=== PATIENT | female | born 1985 | race Hispanic/Latino ===

== ENCOUNTER 2021-11-15 10:07 | Outpatient (CLI) | payer BC ==
[2021-11-15 10:25] VITALS: BMI 34.7
[2021-11-15 10:42] LABS: Hemoglobin 11.6 g/dL (12.0-15.5); Mean Corpuscular HGB CONC 32.9 g/dL (32.0-36.0); Mean Corpuscular Hemoglobin 29.3 pg (27.0-33.0); Mean Corpuscular Volume 89.1 fl (81.6-98.3); Mean Platelet Volume 11.9 fl (7.4-10.4); Platelet Count 241 10x3/uL (150-450); RBC Distribution Width 13.3 % (11.5-14.5); Red Blood Cell (RBC) Count 3.96 10x6/uL (3.90-5.03); White Blood Cell (WBC) Count 6.5 10x3/uL (3.5-10.5)
[2021-11-15 11:25] LABS: Syphilis Antibody Nonreactive (Nonreactive); Syphilis Antibody Index 0.05 S/CO (<1.00 Non-Reactive)
[2021-11-15 11:28] LABS: HBSAg Index 0.16 S/CO (0-0.99); Hep B Surf Ag NonReactive S/CO (NonReactive)
== END 2021-11-15 10:08 | disposition home or self-care (01) ==
LOC: CSHLAB 10:07
PROVIDERS: ATTEND Obstetrics & Gynecology
DX: Z01.812 Encounter for preprocedural laboratory examination (principal); Z20.822 Contact with and (suspected) exposure to COVID-19
CPT/HCPCS: 85027; 86780; 87340; U0003; U0005

== ENCOUNTER 2021-11-18 09:47 | Inpatient (IN) | payer BC ==
[2021-11-18] MEDS ORDERED: Ondansetron PF 4 MG/2 ML Vial ONE (10:27)
[2021-11-18] MEDS ORDERED: ePHEDrine Sulfate 50 MG/10 ML VIAL ONE (10:27)
[2021-11-18] MEDS ORDERED: Oxytocin 10 UNITS/ML VIAL ONE ×2 (10:27→12:47)
[2021-11-18] MEDS ORDERED: Phenylephrine 40 MG/NS 250 ML 250 ML ONE (10:27)
[2021-11-18] MEDS ORDERED: Morphine PF 10 MG/10 ML VIAL ONE (10:27)
[2021-11-18] MEDS ORDERED: PHENYLEPHRINE-NS 100 MCG/ML 10 ML SYRINGE ONE (10:27)
[2021-11-18] MEDS ORDERED: Ketorolac Tromethamine 30 MG/ML VIAL ONE (10:27)
[2021-11-18] MEDS ORDERED: Bicitra 30 ML UDCUP PO PRN (10:53)
[2021-11-18] MEDS ORDERED: Famotidine/PF 20 mg/2ml Vial SLOW IVP PRN (10:53)
[2021-11-18] MEDS ORDERED: Ondansetron PF 4 MG/2 ML Vial IVP PRN ×2 (10:53→11:59)
[2021-11-18] MEDS ORDERED: Lactated Ringer's 1,000 ML IV SCH (10:53)
[2021-11-18] MEDS ORDERED: ceFAZolin 2 GM/Dextrose 50 ML 2 GM in Premix Bag 1 BAG IVPB SCH (10:53)
[2021-11-18] MEDS ORDERED: hydrALAZINE 20 MG/ML VIAL SLOW IVP PRN ×2 (10:53→13:02)
[2021-11-18] MEDS ORDERED: Promethazine HCl 25 MG/ML VIAL IM PRN ×3 (10:53→14:25)
[2021-11-18 10:54] VITALS: BMI 34.0
[2021-11-18] MEDS ORDERED: CEFAZOLIN 2 GM in Sodium Chloride 0.9% 100 ML IVPB SCH (11:15)
[2021-11-18] MEDS ORDERED: Moisturizing Cream (Eucerin) 113 GM JAR TOP PRN (11:59)
[2021-11-18] MEDS ORDERED: Naloxone HCl 0.4 mg/ml Vial IV PRN ×2 (11:59→14:25)
[2021-11-18] MEDS ORDERED: Ondansetron HCl/PF 4 MG/2 ML Vial IVP PRN (11:59)
[2021-11-18] MEDS ORDERED: Fentanyl 100 MCG/2 ML VIAL SLOW IVP PRN (11:59)
[2021-11-18] MEDS ORDERED: Meperidine HCl/PF 25 MG/ML VIAL SLOW IVP PRN (11:59)
[2021-11-18] MEDS ORDERED: Promethazine HCl 25 MG SUPP PR PRN (11:59)
[2021-11-18] MEDS ORDERED: Naloxone HCl 0.4 mg/ml Vial IVP PRN ×2 (11:59)
[2021-11-18] MEDS ORDERED: diphenhydrAMINE 50 MG/ML VIAL IVP PRN ×2 (11:59→14:25)
[2021-11-18] MEDS ORDERED: Communication Order-Pharmacy FS SCH ×2 (12:00→14:30)
[2021-11-18] MEDS ORDERED: diphenhydrAMINE 25 MG CAP PO PRN ×2 (13:02→14:25)
[2021-11-18] MEDS ORDERED: Acetaminophen 325 MG TAB PO PRN (13:02)
[2021-11-18] MEDS ORDERED: Bisacodyl 10 MG SUPP PR PRN (13:02)
[2021-11-18] MEDS ORDERED: Lanolin Ointment 7 GM TUBE TOP PRN (13:02)
[2021-11-18] MEDS ORDERED: Meperidine HCl/PF 25 MG/ML VIAL ONE (14:04)
[2021-11-18] MEDS ORDERED: fentaNYL Citrate/PF 2,000 MCG in Sodium Chloride 0.9% 60 ML IV PRN (14:25)
[2021-11-18] MEDS ORDERED: diphenhydrAMINE 50 MG/ML VIAL IM PRN (14:25)
[2021-11-18] MEDS ORDERED: Zolpidem Tartrate 5 MG TAB PO PRN (14:25)
[2021-11-18] MEDS ORDERED: fentaNYL Citrate/PF 1,000 MCG in Sodium Chloride 0.9% 30 ML IV PRN (14:45)
[2021-11-18] MEDS: FENTANYL IV PRN (15:07)
[2021-11-18] MEDS: SODIUM CHLORIDE 0.9% IV PRN (15:07)
[2021-11-18] MEDS: Ondansetron PF 4 MG/2 ML Vial IVP PRN (17:19)
[2021-11-18] MEDS: Docusate 100 MG CAP PO SCH (20:28)
[2021-11-19] MEDS ORDERED: HYDROcodone/Acetaminophen 5/325 mg Tablet PO PRN ×3 (00:01→09:11)
[2021-11-19] MEDS: SODIUM CHLORIDE 0.9% IV PRN (04:51)
[2021-11-19] MEDS: FENTANYL IV PRN (04:51)
[2021-11-19] MEDS: Simethicone Chewable 80 MG TAB PO PRN ×2 (05:12→19:43)
[2021-11-19] MEDS: Ondansetron PF 4 MG/2 ML Vial IVP PRN (05:12)
[2021-11-19 05:38] LABS: Hemoglobin 10.7 g/dL (12.0-15.5); Mean Corpuscular HGB CONC 33.9 g/dL (32.0-36.0); Mean Corpuscular Hemoglobin 29.4 pg (27.0-33.0); Mean Corpuscular Volume 86.8 fl (81.6-98.3); Mean Platelet Volume 11.6 fl (7.4-10.4); Platelet Count 205 10x3/uL (150-450); RBC Distribution Width 13.2 % (11.5-14.5); Red Blood Cell (RBC) Count 3.64 10x6/uL (3.90-5.03); White Blood Cell (WBC) Count 8.8 10x3/uL (3.5-10.5)
[2021-11-19] MEDS: Famotidine 20 MG TAB PO SCH ×2 (08:45→21:05)
[2021-11-19] MEDS: Prenatal Vitamin 1 TAB PO SCH (08:46)
[2021-11-19] MEDS: Docusate 100 MG CAP PO SCH ×2 (08:46→21:05)
[2021-11-19] MEDS: HYDROcodone/Acetaminophen 5/325 mg Tablet PO PRN ×3 (10:48→19:42)
[2021-11-19] MEDS ORDERED: Boostrix 0.5 ML (Tdap) VIAL IM ONE (13:02)
[2021-11-19] MEDS: HYDROcodone/Acetaminophen 7.5/325 mg Tablet PO PRN (23:58)
[2021-11-20] MEDS: Docusate 100 MG CAP PO SCH ×2 (09:00→21:24)
[2021-11-20] MEDS: Prenatal Vitamin 1 TAB PO SCH (09:00)
[2021-11-20] MEDS: Famotidine 20 MG TAB PO SCH ×2 (09:00→21:24)
[2021-11-20] MEDS: Simethicone Chewable 80 MG TAB PO PRN ×3 (09:00→21:24)
[2021-11-20] MEDS: HYDROcodone/Acetaminophen 7.5/325 mg Tablet PO PRN ×3 (12:09→23:45)
[2021-11-20] MEDS ORDERED: Labetalol HCl 100 MG/20 ML VIAL SLOW IVP PRN (20:13)
[2021-11-20] MEDS ORDERED: NIFEdipine XL 30 MG TAB PO SCH (21:00)
[2021-11-21] MEDS: HYDROcodone/Acetaminophen 7.5/325 mg Tablet PO PRN ×2 (06:18→12:12)
[2021-11-21] MEDS: Prenatal Vitamin 1 TAB PO SCH (09:18)
[2021-11-21] MEDS: Docusate 100 MG CAP PO SCH (09:18)
[2021-11-21] MEDS: Famotidine 20 MG TAB PO SCH (09:18)
[2021-11-21 14:25] VITALS: BP 137/90; TEMP 97.8
== END 2021-11-21 13:55 | disposition home or self-care (01) | DRG 788 ==
LOC: CSHLD 09:47 → CSHPP 18:00
PROVIDERS: ADMIT Obstetrics & Gynecology; ATTEND Obstetrics & Gynecology
PROC: 10D00Z1 Extraction of Products of Conception, Low, Open Approach (ICD-10-PCS; principal; 2021-11-18)
DX: O34.211 Maternal care for low transverse scar from previous cesarean delivery (principal); Z3A.39 39 weeks gestation of pregnancy; Z37.0 Single live birth; O99.844 Bariatric surgery status complicating childbirth; Z88.8 Allergy status to other drugs, medicaments and biological substances; O16.5 Unspecified maternal hypertension, complicating the puerperium
CPT/HCPCS: 36415; 51702; 85027; 86850; 86900; 86901; J1885; J2175; J2274; J2405; J2550; J2590; J3010; J3490; S0028